=== PATIENT | female | born 1980 | race Two or more races ===

== ENCOUNTER 2021-07-15 07:21 | Observation (INO) | payer MEDICAID ==
[2021-07-15] MEDS ORDERED: NITR-87 PO (09:15)
[2021-07-15] MEDS ORDERED: PREN-96 PO (09:15)
== END 2021-07-15 09:52 | disposition home or self-care (01) ==
LOC: LDRP 08:20
PROVIDERS: ADMIT Obstetrics & Gynecology; ATTEND Obstetrics & Gynecology
DX: O36.1930 Maternal care for other isoimmunization, third trimester, not applicable or unspecified (principal); O23.43 Unspecified infection of urinary tract in pregnancy, third trimester; Z3A.29 29 weeks gestation of pregnancy
CPT/HCPCS: 59025; 76818; 81002; 94760; G0378; G0379

== ENCOUNTER 2021-07-22 08:46 | Observation (INO) | payer MEDICAID ==
[~2021-07-22 08:46] MED LIST: NITR-87 PO; PREN-96 PO
== END 2021-07-22 09:52 | disposition home or self-care (01) ==
LOC: LDRP 08:46
PROVIDERS: ADMIT Obstetrics & Gynecology; ATTEND Obstetrics & Gynecology
DX: O36.1930 Maternal care for other isoimmunization, third trimester, not applicable or unspecified (principal); Z3A.30 30 weeks gestation of pregnancy
CPT/HCPCS: 59025; 76818; 81002; 94760; G0378; G0379

== ENCOUNTER 2021-07-25 10:07 | Observation (INO) | payer MEDICAID | END 2021-07-25 11:10 | disposition home or self-care (01) | LOC: LDRP 10:07 | PROVIDERS: ADMIT Obstetrics & Gynecology; ATTEND Obstetrics & Gynecology | DX: O36.0930 Maternal care for other rhesus isoimmunization, third trimester, not applicable or unspecified (principal); O40.3XX0 Polyhydramnios, third trimester, not applicable or unspecified; Z3A.31 31 weeks gestation of pregnancy | CPT/HCPCS: 59025; 76818; 81002; 94760; G0378; G0379 ==

== ENCOUNTER 2021-07-28 08:14 | Observation (INO) | payer MEDICAID | END 2021-07-28 12:17 | disposition home or self-care (01) | LOC: LDRP 09:30 | PROVIDERS: ADMIT Obstetrics & Gynecology Obstetrics; ATTEND Obstetrics & Gynecology Obstetrics | DX: O36.0930 Maternal care for other rhesus isoimmunization, third trimester, not applicable or unspecified (principal); O40.3XX0 Polyhydramnios, third trimester, not applicable or unspecified; Z3A.31 31 weeks gestation of pregnancy | CPT/HCPCS: 59025; 76818; 81002; G0378 ==

== ENCOUNTER 2021-08-01 07:55 | Observation (INO) | payer MEDICAID ==
[~2021-08-01 07:55] MED LIST changes: -NITR-87 PO
== END 2021-08-01 11:00 | disposition home or self-care (01) ==
LOC: LDRP 09:28
PROVIDERS: ADMIT Obstetrics & Gynecology; ATTEND Obstetrics & Gynecology
DX: O36.0930 Maternal care for other rhesus isoimmunization, third trimester, not applicable or unspecified (principal); Z3A.32 32 weeks gestation of pregnancy
CPT/HCPCS: 59025; 76818; 81002; 94760; G0378; G0379

== ENCOUNTER 2021-08-04 08:50 | Observation (INO) | payer MEDICAID | END 2021-08-04 11:32 | disposition home or self-care (01) | LOC: LDRP 08:50 | PROVIDERS: ADMIT Obstetrics & Gynecology Obstetrics; ATTEND Obstetrics & Gynecology Obstetrics | DX: O36.0930 Maternal care for other rhesus isoimmunization, third trimester, not applicable or unspecified (principal); Z3A.32 32 weeks gestation of pregnancy | CPT/HCPCS: 59025; 76818; 81002; 94760; G0378 ==

== ENCOUNTER 2021-08-08 08:56 | Observation (INO) | payer MEDICAID | END 2021-08-08 10:55 | disposition home or self-care (01) | LOC: LDRP 08:56 | PROVIDERS: ADMIT Obstetrics & Gynecology; ATTEND Obstetrics & Gynecology | DX: O36.1930 Maternal care for other isoimmunization, third trimester, not applicable or unspecified (principal); Z3A.33 33 weeks gestation of pregnancy | CPT/HCPCS: 59025; 76818; 81002; 94760; G0378; G0379 ==

== ENCOUNTER 2021-08-11 08:45 | Observation (INO) | payer MEDICAID | END 2021-08-11 10:10 | disposition home or self-care (01) | LOC: LDRP 08:45 | PROVIDERS: ADMIT Obstetrics & Gynecology Obstetrics; ATTEND Obstetrics & Gynecology Obstetrics | DX: O36.0930 Maternal care for other rhesus isoimmunization, third trimester, not applicable or unspecified (principal); O36.1930 Maternal care for other isoimmunization, third trimester, not applicable or unspecified; Z3A.33 33 weeks gestation of pregnancy | CPT/HCPCS: 59025; 76818; 81002; 82948; G0378; G0379 ==

== ENCOUNTER 2021-08-15 07:41 | Observation (INO) | payer MEDICAID | END 2021-08-15 10:05 | disposition home or self-care (01) | LOC: LDRP 08:49 | PROVIDERS: ADMIT Obstetrics & Gynecology; ATTEND Obstetrics & Gynecology | DX: O36.1930 Maternal care for other isoimmunization, third trimester, not applicable or unspecified (principal); Z3A.34 34 weeks gestation of pregnancy | CPT/HCPCS: 59025; 76818; 81002; 94760; G0378 ==

== ENCOUNTER 2021-08-18 09:21 | Observation (INO) | payer MEDICAID | END 2021-08-18 10:23 | disposition home or self-care (01) | LOC: LDRP 09:21 | PROVIDERS: ADMIT Obstetrics & Gynecology Obstetrics; ATTEND Obstetrics & Gynecology Obstetrics | DX: O36.0191 Maternal care for anti-D [Rh] antibodies, unspecified trimester, fetus 1 (principal); O40.9XX0 Polyhydramnios, unspecified trimester, not applicable or unspecified; Z3A.34 34 weeks gestation of pregnancy | CPT/HCPCS: 59025; 76818; 81002; 94760; G0378; G0379 ==

== ENCOUNTER 2021-08-25 09:00 | Observation (INO) | payer MEDICAID | END 2021-08-25 10:49 | disposition home or self-care (01) | LOC: LDRP 09:00 | PROVIDERS: ADMIT Obstetrics & Gynecology Obstetrics; ATTEND Obstetrics & Gynecology Obstetrics | DX: O40.3XX0 Polyhydramnios, third trimester, not applicable or unspecified (principal); O36.1930 Maternal care for other isoimmunization, third trimester, not applicable or unspecified; O34.219 Maternal care for unspecified type scar from previous cesarean delivery; N85.8 Other specified noninflammatory disorders of uterus; Z3A.35 35 weeks gestation of pregnancy | CPT/HCPCS: 59025; 76818; 81002; 94760; G0378 ==

== ENCOUNTER 2021-08-29 09:53 | Observation (INO) | payer MEDICAID ==
[~2021-08-29] VITALS: Ht 160 cm; Wt 103.9 kg
== END 2021-08-29 11:33 | disposition home or self-care (01) ==
LOC: LDRP 09:53
PROVIDERS: ADMIT Obstetrics & Gynecology; ATTEND Obstetrics & Gynecology
DX: O36.1930 Maternal care for other isoimmunization, third trimester, not applicable or unspecified (principal); O40.3XX0 Polyhydramnios, third trimester, not applicable or unspecified; Z3A.36 36 weeks gestation of pregnancy
CPT/HCPCS: 59025; 76818; 81002; 94760; G0378; G0379

== ENCOUNTER 2021-09-01 08:29 | Observation (INO) | payer MEDICAID | END 2021-09-01 11:17 | disposition home or self-care (01) | LOC: LDRP 09:01 | PROVIDERS: ADMIT Obstetrics & Gynecology Obstetrics; ATTEND Obstetrics & Gynecology Obstetrics | DX: O40.3XX0 Polyhydramnios, third trimester, not applicable or unspecified (principal); O36.1930 Maternal care for other isoimmunization, third trimester, not applicable or unspecified; Z3A.36 36 weeks gestation of pregnancy | CPT/HCPCS: 59025; 81002; G0378; G0379 ==

== ENCOUNTER 2021-09-05 08:45 | Observation (INO) | payer MEDICAID | END 2021-09-05 10:15 | disposition home or self-care (01) | LOC: LDRP 08:45 | PROVIDERS: ADMIT Obstetrics & Gynecology; ATTEND Obstetrics & Gynecology | DX: O36.1930 Maternal care for other isoimmunization, third trimester, not applicable or unspecified (principal); O40.3XX0 Polyhydramnios, third trimester, not applicable or unspecified; Z3A.37 37 weeks gestation of pregnancy | CPT/HCPCS: 59025; 76818; 81002; G0378; G0379 ==

== ENCOUNTER 2021-09-08 07:41 | Observation (INO) | payer MEDICAID | END 2021-09-08 11:29 | disposition home or self-care (01) | LOC: LDRP 09:15 | PROVIDERS: ADMIT Obstetrics & Gynecology; ATTEND Obstetrics & Gynecology | DX: O40.3XX0 Polyhydramnios, third trimester, not applicable or unspecified (principal); O36.1930 Maternal care for other isoimmunization, third trimester, not applicable or unspecified; Z3A.37 37 weeks gestation of pregnancy | CPT/HCPCS: 59025; 76818; 81002; G0378 ==

== ENCOUNTER 2021-09-12 09:12 | Observation (INO) | payer MEDICAID ==
[~2021-09-12] VITALS: Ht 160 cm; Wt 104.3 kg
== END 2021-09-12 10:40 | disposition home or self-care (01) ==
LOC: LDRP 09:12
PROVIDERS: ADMIT Obstetrics & Gynecology; ATTEND Obstetrics & Gynecology
DX: O36.1930 Maternal care for other isoimmunization, third trimester, not applicable or unspecified (principal); O40.3XX0 Polyhydramnios, third trimester, not applicable or unspecified; Z3A.38 38 weeks gestation of pregnancy
CPT/HCPCS: 59025; 76818; 81002; G0378; G0379

== ENCOUNTER 2021-09-16 07:46 | Inpatient (IN) | payer MEDICAID ==
[~2021-09-16] VITALS: Ht 160 cm; Wt 104.3 kg
[2021-09-17] VITALS (9 sets, daily range): BP systolic 104–118; BP diastolic 60–79
[2021-09-17] MEDS ORDERED: SODIUM CITR/CITRIC ACID ORAL SOLN 30 ML PO ONE (04:45)
[2021-09-17] MEDS ORDERED: ceFAZolin 1GM/50ML 50 ML IV ONE (04:45)
[2021-09-17] MEDS: LACTATED RINGER'S 1,000 ML IV SCH ×3 (04:45→20:45)
[2021-09-17] MEDS ORDERED: METOCLOPRAMIDE HCL 5MG/ml INJ 2ml VIAL IV ONE (04:45)
[2021-09-17] MEDS ORDERED: LACTATED RINGER'S 1,000 ML IV ONE (04:45)
[2021-09-17 05:17] LABS: Urine Bacteria MANY /hpf (None Seen); Urine Blood Negative /uL (Negative); Urine Mucus FEW (None Seen); Urine Specific Gravity 1.021 (1.001-1.035); Urine WBC 3 /hpf (0 - 5)
[2021-09-17 05:37] LABS: Amphetamine Screen, Urine POSITIVE (NEGATIVE); Barbiturate Scree,Urine NEGATIVE (NEGATIVE); Benzodiazephine Screen, Urine NEGATIVE (NEGATIVE); Cannabinoid Screen, Urine NEGATIVE (NEGATIVE); Cocaine Screen, Urine NEGATIVE (NEGATIVE); Opiate Scree,Urine NEGATIVE (NEGATIVE); Phencyclidine Screen, Urine NEGATIVE (NEGATIVE)
[2021-09-17] MEDS ORDERED: SODIUM CHLORIDE LOCK 10 ML ONE (06:17)
[2021-09-17] MEDS ORDERED: EPINEPHrine HCL 1 MG/1 ML AMP ONE (06:17)
[2021-09-17] MEDS ORDERED: oxyTOCIN 10 UNIT/ML 10ML VIAL ONE (06:17)
[2021-09-17] MEDS ORDERED: fentaNYL CITRATE 100 MCG/2 ML VL ONE (06:17)
[2021-09-17] MEDS ORDERED: ONDANSETRON HCL 4 MG/2 ML VIAL ONE (06:17)
[2021-09-17] MEDS ORDERED: MIDAZOLAM HCL 2MG/2ML 2ml VIAL (1mg/ml) ONE ×2 (06:17→08:44)
[2021-09-17] MEDS ORDERED: BUPIVACAINE/DEXTROSE MPF 0.75% 2 ML AMP IT ONE (06:17)
[2021-09-17 06:20] LABS: Albumin 2.6 g/dL (3.4-5.0); Calcium 8.4 mg/dL (8.5-10.1); Potassium 3.6 mmol/L (3.5-5.1)
[2021-09-17 06:21] LABS: Basophils # (auto) 0 10 ^3/uL (0-0.2); Basophils % (auto) 0.2 % (0.0-2.0); Eosinophils # (auto) 0.1 10 ^3/uL (0-0.8); Eosinophils % (auto) 1.2 % (0.0-7.0); Hemoglobin 12.8 g/dL (12.2-16.2); Mean Corpuscular Hemoglobin 32.7 pg (28.0-32.0); Mean Corpuscular Hgb Conc. 33.8 g/dL (32.0-36.0); Mean Corpuscular Volume 96.8 fL (80.0-100.0); Monocytes # (auto) 0.5 10 ^3/uL (0-1.3); Monocytes % (auto) 6.6 % (0.0-12.0); Neutrophils # (auto) 6.2 10 ^3/uL (1.6-8.6); Red Blood Cells 3.92 10^6/uL (4.0-5.20); Red Cell Distribution Width 14.6 % (11.8-14.3); White Blood Cell 7.8 10^3/uL (4.4-10.8)
[2021-09-17] MEDS ORDERED: MORPHINE SULF PF 2 MG/2 ML SYRG ONE (06:22)
[2021-09-17 06:24] LABS: Bilirubin, Total 0.2 mg/dL (0.2-1.0); Total Protein 6.3 g/dL (6.4-8.2)
[2021-09-17] MEDS ORDERED: TETRACAINE 1% INJ 2 ML VIAL IJ ONE (06:27)
[2021-09-17 06:35] LABS: INR 0.96 (0.9-1.15)
[2021-09-17] MEDS ORDERED: GUM (CHEWING) 1 GUM CHEW CHEW ONE (07:30)
[2021-09-17] MEDS ORDERED: LACT. RINGERS/OXYTOCIN 20UNITS 1,000 ML IV ONE (07:30)
[2021-09-17] MEDS ORDERED: ceFAZolin 1GM/50ML 50 ML IV SCH (07:30)
[2021-09-17] MEDS ORDERED: ONDANSETRON HCL 4 MG/2 ML VIAL IV PRN (07:30)
[2021-09-17] MEDS ORDERED: diphenhdrAMINE HCL 50 MG/1 ML VL ONE (08:38)
[2021-09-17] MEDS ORDERED: diphenhdrAMINE HCL 50 MG/1 ML VL IV PRN (09:00)
[2021-09-17] MEDS ORDERED: KETOROLAC TROMETH 30 MG/ML 1ML VIAL IV ONE (09:00)
[2021-09-17] MEDS ORDERED: MORPHINE SULFATE 4 MG/ML SYR/VIAL IV PRN (09:00)
[2021-09-17] MEDS ORDERED: METOCLOPRAMIDE HCL 5MG/ml INJ 2ml VIAL IV PRN (09:00)
[2021-09-17] MEDS ORDERED: NALOXONE HCL 0.4 MG/ML VIAL IV PRN (09:00)
[2021-09-17] MEDS ORDERED: HYDROmorphone HCL 2 MG/ML VL IV PRN (09:00)
[2021-09-17] MEDS ORDERED: METHYLERGONOVINE MALEATE 0.2 MG/ML AMP IM PRN (14:00)
[2021-09-17] MEDS ORDERED: miSOPROStol 100 mcg TAB SL PRN (14:00)
[2021-09-17] MEDS ORDERED: miSOPROStol 100 mcg TAB PR PRN (14:00)
[2021-09-17] MEDS ORDERED: LACT. RINGERS/OXYTOCIN 20UNITS 500 ML IV ONE (14:45)
[2021-09-17] MEDS: ceFAZolin 1GM/50ML 50 ML IV SCH ×2 (14:47→22:53)
[2021-09-17] MEDS: ACETAMINOPHEN IV 1000 MG/100ML (10MG/ML) IV PRN (16:29)
[2021-09-17 19:40] LABS: Alcohol, Urine < 3.0 mg/dL (0-10); Amphetamine Screen, Urine NEGATIVE (NEGATIVE); Barbiturate Scree,Urine NEGATIVE (NEGATIVE); Benzodiazephine Screen, Urine POSITIVE (NEGATIVE); Cannabinoid Screen, Urine NEGATIVE (NEGATIVE); Cocaine Screen, Urine NEGATIVE (NEGATIVE); Opiate Scree,Urine NEGATIVE (NEGATIVE); Phencyclidine Screen, Urine NEGATIVE (NEGATIVE)
[2021-09-17 22:04] LABS: Basophils # (auto) 0 10 ^3/uL (0-0.2); Basophils % (auto) 0.1 % (0.0-2.0); Eosinophils # (auto) 0 10 ^3/uL (0-0.8); Eosinophils % (auto) 0.5 % (0.0-7.0); Hematocrit 38.8 % (36.0-46.0); Hemoglobin 13.1 g/dL (12.2-16.2); Lymphocytes % (auto) 9.3 % (10.0-50.0); Mean Corpuscular Hemoglobin 32.8 pg (28.0-32.0); Mean Corpuscular Hgb Conc. 33.8 g/dL (32.0-36.0); Mean Corpuscular Volume 96.9 fL (80.0-100.0); Monocytes # (auto) 0.7 10 ^3/uL (0-1.3); Monocytes % (auto) 6.8 % (0.0-12.0); Neutrophils # (auto) 8.5 10 ^3/uL (1.6-8.6); Neutrophils % (auto) 83.3 % (37.0-80.0); Nucleated Red Blood Cells % 0.1 %; Red Cell Distribution Width 14.2 % (11.8-14.3); White Blood Cell 10.2 10^3/uL (4.4-10.8)
[2021-09-18] VITALS (13 sets, daily range): BP systolic 106–130; BP diastolic 50–82
[2021-09-18] MEDS: ACETAMINOPHEN IV 1000 MG/100ML (10MG/ML) IV PRN ×2 (00:40→11:23)
[2021-09-18] MEDS ORDERED: TETANUS-DIPTH-ACEL PERTUSSIS 0.5ML SYR Tdap IM ONE (01:15)
[2021-09-18] MEDS: LACTATED RINGER'S 1,000 ML IV SCH (02:26)
[2021-09-18 06:06] LABS: RPR Non Reactive (Non Reactive)
[2021-09-18] MEDS ORDERED: BISACODYL 10 MG RECT SUPP PR PRN (07:00)
[2021-09-18] MEDS: ceFAZolin 1GM/50ML 50 ML IV SCH (07:38)
[2021-09-18] MEDS: HYDROcodone-ACET 5/325MG TAB PO PRN ×3 (07:49→23:22)
[2021-09-18] MEDS ORDERED: LACT. RINGER'S W OXYTOCIN 20UNITS/1000 ML IV SCH (10:00)
[2021-09-18 10:09] LABS: Basophils # (auto) 0 10 ^3/uL (0-0.2); Basophils % (auto) 0.2 % (0.0-2.0); Eosinophils # (auto) 0 10 ^3/uL (0-0.8); Eosinophils % (auto) 0.2 % (0.0-7.0); Hematocrit 37.6 % (36.0-46.0); Hemoglobin 12.8 g/dL (12.2-16.2); Lymphocytes # (auto) 0.6 10 ^3/uL (0.4-5.4); Lymphocytes % (auto) 6.1 % (10.0-50.0); Mean Corpuscular Hemoglobin 32.9 pg (28.0-32.0); Mean Corpuscular Hgb Conc. 34.1 g/dL (32.0-36.0); Mean Corpuscular Volume 96.4 fL (80.0-100.0); Monocytes # (auto) 0.6 10 ^3/uL (0-1.3); Monocytes % (auto) 5.7 % (0.0-12.0); Neutrophils # (auto) 8.8 10 ^3/uL (1.6-8.6); Neutrophils % (auto) 87.8 % (37.0-80.0); Red Cell Distribution Width 14.2 % (11.8-14.3)
[2021-09-18] MEDS: DOCUSATE SOD 100 MG CAP PO SCH ×2 (10:12→23:20)
[2021-09-18] MEDS: DOCUSATE CALCIUM 240 MG CAP PO SCH (10:12)
[2021-09-18] MEDS: SIMETHICONE 80 MG CHEWABLE TABLET PO SCH ×3 (12:11→23:20)
[2021-09-18] MEDS: IBUPROFEN 800 MG TAB PO PRN (15:56)
[2021-09-19 03:00] VITALS: BP 119/71
[2021-09-19] MEDS: IBUPROFEN 800 MG TAB PO PRN ×2 (04:35→14:46)
[2021-09-19] MEDS: SIMETHICONE 80 MG CHEWABLE TABLET PO SCH ×4 (05:57→22:19)
[2021-09-19 07:00] VITALS: BP 115/60
[2021-09-19] MEDS ORDERED: DOCU-94 PO (07:38)
[2021-09-19] MEDS ORDERED: HYDR-4902 PO (07:38)
[2021-09-19] MEDS ORDERED: IBUP800T27 PO (07:38)
[2021-09-19] MEDS: DOCUSATE CALCIUM 240 MG CAP PO SCH (10:44)
[2021-09-19] MEDS: DOCUSATE SOD 100 MG CAP PO SCH ×2 (10:44→22:19)
[2021-09-19] MEDS: HYDROcodone-ACET 5/325MG TAB PO PRN ×2 (10:55→22:20)
[2021-09-19 11:00] VITALS: BP 117/70
[2021-09-19 15:04] VITALS: BP 110/58
[2021-09-19 19:30] VITALS: BP 132/80
[2021-09-19 22:35] VITALS: BP 108/62
[2021-09-20] MEDS: IBUPROFEN 800 MG TAB PO PRN (02:44)
[2021-09-20 03:16] VITALS: BP 130/62
[2021-09-20] MEDS: SIMETHICONE 80 MG CHEWABLE TABLET PO SCH (06:00)
[2021-09-20 07:00] VITALS: BP 123/68
[2021-09-20 11:30] VITALS: BP 139/79
== END 2021-09-20 12:57 | disposition home or self-care (01) | DRG 539 ==
LOC: LDRP 09-17 03:58 → OBSVTOIN 09-17 03:58 → LDRP 09-17 12:54
PROVIDERS: ADMIT Obstetrics & Gynecology; ATTEND Obstetrics & Gynecology
PROC: 0UB70ZZ Excision of Bilateral Fallopian Tubes, Open Approach (ICD-10-PCS; 2021-09-17)
PROC: 3E0DXGC Introduction of Other Therapeutic Substance into Mouth and Pharynx, External Approach (ICD-10-PCS; 2021-09-17)
PROC: 10D00Z1 Extraction of Products of Conception, Low, Open Approach (ICD-10-PCS; principal; 2021-09-17 07:40)
DX: O34.211 Maternal care for low transverse scar from previous cesarean delivery (principal); Z20.822 Contact with and (suspected) exposure to COVID-19; Z30.2 Encounter for sterilization; Z37.0 Single live birth; Z3A.39 39 weeks gestation of pregnancy
CPT/HCPCS: 36415; 59025; 80053; 80307; 81001; 81002; 85025; 85610; 85730; 86592; 86850; 86870; 86900; 86901; 87426; 90715; 94760; 94762; 96360; 96361; 96366; 96372; G0378; J0131; J0171; J0690; J2250; J2405; J2590

== ENCOUNTER 2024-11-05 11:59 | Inpatient (IN) | payer MEDICAID ==
[~2024-11-05] VITALS: Ht 160 cm; Wt 84.3 kg
[~2024-11-05 11:59] MED LIST changes: +DOCU-94 PO; +HYDR-4902 PO; +IBUP-1456 PO
[2024-11-05] MEDS ORDERED: NITROGLYCERIN 2% OINT 1GM PKG TD ONE (12:01)
[2024-11-05] MEDS ORDERED: LORazepam 2MG/ML-1ML VIAL ONE (12:01)
--- NOTE | 2024-11-05 12:28 | ED.PDOC ---
HPI Comments 44y F who presents to the ED for chief complaint of chest pain. Pt states she has been having chest pain for the past 3 days. Pt states the pain is by the L side of her chest, intermittent, stabbing in nature, with no associated exacerbating or relieving factors. Pt states the symptoms had gone away and states came back today where she experienced L sided chest pain described as tightness and has started to have bilateral lower extremity pain described as "tingling." Pt states she also started to have this new associated generalized malaise and weakness and came to the ED for further evaluation. Pt otherwise denies shortness of breath, diaphoresis, palpitations, fever, cough,chills, headache or dizziness. Pt in the ED has noted blood pressure of 146/110 with otherwise noted stable vitals of temp of 98.2F and 100% 02 sat on room air with all other vitals in normal range. Pt denies any past medical history and denies use any medications on daily basis. Pt otherwise denies any other symptoms at this time. Time Seen by MD: 12:23 Primary Care Provider: JOSUÉ Egan Notes: Medications, Allergies Allergies: Coded Allergies: NO KNOWN ALLERGIES (Unverified , 09/15/21) Home Meds Active Scripts Ibuprofen (Ibuprofen) 800 Mg Tab, 800 MG PO TID PRN for 15 Days, #40 TAB Prov:LEON GUIDRY 09/19/21 Hydrocodone-Acetaminophen (Hydrocodone Bitartrate/AC 5-325 mg) 1 Tab Tab, 1 TAB PO Q6HPRN PRN for 5 Days, #20 TAB Prov:LEON GUIDRY 09/19/21 Docusate Sodium (Colace) 100 Mg Cap, 1 CAP PO BID, #60 CAP 2 Refills Prov:LEON GUIDRY 09/19/21 Reported Medications Vit W/ Ferrous Fumara ( One Daily) Daily Tab, 1 TAB PO DAILY, #90 TAB 3 Refills 07/15/21 Information Source: Patient Mode of Arrival: Ambulatory Brought in by: self Past Medical History PAST MEDICAL HISTORY: Denies Surgical History: Denies all surgeries IRON WORKER History: No Pertinent IRON WORKER History Family History Family History: Unknown Social History Smoker: Non-Smoker Alcohol: Denies ETOH Use Drugs: Denies Drug Use Lives In: Home Constitutional: denies: chills, diaphoresis, fatigue, fever, malaise, sweats, weakness, others EENTM: denies: blurred vision, double vision, ear bleeding, ear discharge, ear drainage, ear pain, ear ringing, eye pain, eye redness, hearing loss, mouth pain, mouth swelling, nasal discharge, nose bleeding, nose congestion, nose pain, photophobia, tearing, throat pain, throat swelling, voice changes, others Respiratory: denies: cough, hemoptysis, orthopnea, SOB at rest, shortness of breath, SOB with excertion, stridor, wheezing, others Cardiovascular: reports: chest pain; denies: dizzy spells, diaphoresis, Dyspnea on exertion, edema, irregular heart beat, left arm pain, lightheadedness, pal pitations, PND, syncope, others Gastrointestinal: denies: abdomen distended, abdominal pain, blood streaked bowels, constipated, diarrhea, dysphagia, difficulty swallowing, hematemesis, melena, nausea, poor appetite, poor fluid intake, rectal bleeding, rectal pain, vomiting, others Genitourinary: denies: abnormal vagina bleeding, burning, dyspareunia, dysuria, flank pain, frequency, hematuria, incontinence, pain, , vagina discharge, urgency, others Neurological: denies: dizziness, fainting, headache, left sided numbness, left sided weakness, numbness, paresthesia, pre-existing deficit, right sided numbness, right sided weakness, seizure, speech problems, tingling, tremors, weakness, others Musculoskeletal: reports: others (b/l lower extremity tingling); denies: back pain, gout, joint pain, joint swelling, muscle pain, muscle stiffness, neck pain Integumetry: denies: bruises, change in color, change in hair/nails, dryness, laceration, lesions, lumps, rash, wounds, others Allergic/Immunocompromised: denies: Difficulty Healing, Frequent Infections, Hives, Itching, others Hematologic/Lymphatic: denies: anemia, blood clots, easy bleeding, easy bruising, swollen glands, others Endocrine: denies: excessive hunger, excessive sweating, excessive thirst, excessive urination, flushing, intolerance to cold, intolerance to heat, unexplained weight gain, unexplained weight loss, others Psychiatric: denies: anxiety, bipolar disorder, depression, hopeless, panic disorder, schizophrenia, sleepless, suicidal, others All Other Systems: Reviewed and Negative Physical Exam General Appearance: Mild Distress, Obese HEENT: PERRL/EOMI Neck: Full Range of Motion, Normal Inspection Respiratory: Lungs Clear, No Accessory Muscle Use, No Respiratory Distress, Normal Breath Sounds Cardiovascular: No Edema, No JVD, Regular Rate/Rhythm Breast Exam: Deferred Gastrointestinal: Non Tender, Soft Genitalia: Deferred Pelvic: Deferred Rectal: Deferred Extremities: Normal inspection, Normal range of motion, Non-tender, No pedal edema Neurologic: Alert (Oriented x4), picker tender II-XII nml as Tested, No Motor Deficits, No Sensory Deficits, Other (Anxious. Ambulatory without difficulty. No gross focal deficit.) Cerebellar Function: NOT DONE Reflexes: NOT DONE Skin: Dry, Normal Color, Warm Lymphatic: NOT DONE EKG EKG : Comments Sinus rhythm, rate 76, normal intervals, normal axis, normal QRS, no ST/T changes. Was a procedure done? Was a procedure done?: No CP Differential Dx Differential Diagnosis: Angina, Anxiety / Panic Attack, Electrolyte Disorder, PR Other Differential Diagnosis anemia, generalized weakness, UTI, Differential Diagnosis: HTN Essential, HTN Accelerated Differential Diagnosis: Angina, Aortic dissection, Chest Wall Pain, Esophageal reflux/spasm, Gastritis, Pericarditis, Pneumonia Comment CVA, TIA, among others X-Ray, Labs, Meds, VS Vital Signs Date Time Temp Pulse Resp B/P (MAP) Pulse Ox O2 Delivery O2 Flow Rate FiO2 11/05/24 14:11 117/77 11/05/24 14:11 81 15 117/77 (90) 11/05/24 13:02 75 16 99 Room Air* 0 21 11/05/24 13:01 119/84 11/05/24 13:01 97.9 75 17 119/84 (96) 99 97.9 11/05/24 12:18 98.1 74 16 146/110 (122) 100 11/05/24 12:15 76 Lab Test 11/05/24 14:03 11/05/24 13:00 11/05/24 12:22 Range/Units Troponin I High Sensitivity < 3 L < 3 L </=34 ng/L White Blood Count 4.4 4.4-10.8 10^3/uL Red Blood Count 4.37 4.0-5.20 10^6/uL Hemoglobin 8.0 L 12.2-16.2 g/dL Hematocrit 27.4 L 36.0-46.0 % Mean Corpuscular Volume 62.6 L 80.0-100.0 fL Mean Corpuscular Hemoglobin 18.2 L 28.0-32.0 pg Mean Corpuscular Hemoglobin Concent 29.0 L 32.0-36.0 g/dL Red Cell Distribution Width 20.2 H 11.8-14.3 % Platelet Count 350 140-450 10^3/uL Mean Platelet Volume 8.5 6.9-10.8 fL Neutrophils (%) (Auto) 61.8 37.0-80.0 % Lymphocytes (%) (Auto) 27.5 10.0-50.0 % Monocytes (%) (Auto) 7.2 0.0-12.0 % Eosinophils (%) (Auto) 2.7 0.0-7.0 % Basophils (%) (Auto) 0.8 0.0-2.0 % Neutrophils # (Auto) 2.7 1.6-8.6 10 ^3/uL Lymphocytes # (Auto) 1.2 0.4-5.4 10 ^3/uL Monocytes # (Auto) 0.3 0-1.3 10 ^3/uL Eosinophils # (Auto) 0.1 0-0.8 10 ^3/uL Basophils # (Auto) 0 0-0.2 10 ^3/uL Nucleated Red Blood Cells 0.1 % Sodium Level 140 136-145 mmol/L Potassium Level 4.0 3.5-5.1 mmol/L Chloride Level 109 H 98-107 mmol/L Carbon Dioxide Level 25 20-31 mmol/L Anion Gap 6 5-15 Blood Urea Nitrogen 15 9-23 mg/dL Creatinine 0.57 0.550-1.02 mg/dL Glomerular Filtration Rate Calc 115 >90 mL/min BUN/Creatinine Ratio 26.3 H 10.0-20.0 Serum Glucose 89 74-106 mg/dL Calcium Level 9.4 8.7-10.4 mg/dL B-Type Natriuretic Peptide 31.84 0-100 pg/mL Beta HCG, Quantitative < 1.5 L 1.5-4.2 mIU/mL POC Glucose 88 70-106 mg/dl Current Medications Medications (Trade) Dose Ordered Sig/Bon Route Start Time Stop Time Status Last Admin Lorazepam (Ativan Inj) 1 mg ONCE ONCE IV 11/05/24 12:45 11/05/24 12:49 DC 11/05/24 13:01 Nitroglycerin (Nitro-Bid) 1 pkg ONCE ONCE TD 11/05/24 12:45 11/05/24 12:49 DC 11/05/24 13:01 Acetaminophen (Tylenol Tablet Or Capsule) 1,000 mg ONCE ONCE PO 11/05/24 12:45 11/05/24 12:49 DC 11/05/24 13:00 PROCEDURE(s): HWOCT - HEAD WITHOUT CONTRAST REASON: L side numb ORDER NUMBER(s): [id number], ACCESSION NUMBER(s): [id number] CT HEAD WITHOUT CONTRAST INDICATION: L side numb EXAM DATE: 11/05/2024 02:09 PM COMPARISON: None RADIATION DOSE: CTDIvol: 53.21 mGy, DLP: 942.26 mGy*cm PROCEDURE: CT scans of the head were obtained from the vertex to the skull base. Sagittal and coronal reconstructions were provided. All CT scans at this medical facility are performed using dose modulation techniques as appropriate to a performed exam including the following: Automated exposure control was utilized; adjustment of the MA and/or KV according to patient size; and use of iterative reconstruction technique. FINDINGS: There is sulcal and ventricular prominence. The brainshows normal morphology and banks-white matter differentiation, without intracranial hemorrhage, extra-axial fluid collection, mass effect or acute large vessel infarct. The ventricles are normal in size. The basal cisterns are patent. The skull and visible facial bones are intact. The paranasal sinuses, mastoid air cells and middle ear cavities are well-aerated. The soft tissues of the scalp are unremarkable. IMPRESSION: No acute intracranial abnormality. EDURE(s): CXRP - CHEST PORTABLE REASON: cp ORDER NUMBER(s): [id number], ACCESSION NUMBER(s): [id number] INDICATION: cp TECHNIQUE: Frontal view of the chest. COMPARISON: None FINDINGS: . The heart and mediastinal contours are grossly unremarkable. There is no evidence of pleural disease. The lungs are clear. The bony structures of the chest are intact without fracture. IMPRESSION: 1. No evidence of acute disease. X-Ray, Labs, Meds, VS Comment 44-year-old female with no significant past medical history presenting with chest pain, facial numbness and lower extremity numbness Vitals remarkable for BP 146/110 Exam remarkable for anxiety. No focal neurologic deficit Rhythm strip independently interpreted by me: Sinus rhythm, rate 76, no ectopy. Head CT IMPRESSION: No acute intracranial abnormality. Chest x-ray IMPRESSION: 1. No evidence of acute disease. CBC remarkable for hemoglobin 8, hematocrit 27.4, metabolic panel unremarkable, BNP and 2 serial troponins negative, hCG negative Patient treated with the following in the ED: Nitro-Bid 1/2 in to chest wall, Ativan 1 mg IV, Tylenol 1 g p.o. On re-evaluation, patient is chest pain-free, blood pressure is 117/77, and patient states she feels better. Neuro exam is unchanged. Plan is to admit the patient for Cardiology evaluation and ongoing blood pressure management. Time of 1ST Reevaluation: 13:00 Reevaluation 1ST: Unchanged Time of 2ND Reevaluation: 15:18 Reevaluation 2ND: Improved Patient Education/Counseling: Diagnosis, Treatment Family Education/Counseling: No Family Present Additional Information -Reviewed patient's previous visit(s): - The following tests were ordered, and results were reviewed by me: trop x 2, cbc, bnp. chest x-ray, ua, bmp, ekg x1, ct head w/o contrast, beta hcg - I reviewed and agreed with the following test results read by other provider: radiologist - I discussed treatments and results with medical personnel and: patient Comprehensive systems review obtained and negative except for what is stated in the HPI. Departure 1 Departure Time of Disposition: 15:17 Impression: Primary Impression: Hypertensive urgency Additional Impressions: Acute chest pain Paresthesias Disposition: ADMITTED INPATIENT Admit to: Tele Condition: Guarded Critical Care Note Critical Care Time?: No Stability Stability form required: No Heart Score Heart Score: Heart Score Response (Comments) Value History Moderate Suspicious 1 EKG Normal 0 Age <45 0 Risk Factors No known risk factors 0 Troponin Normal limit 0 Total 1 I personally scribed for JOSE GUADALUPE BARCLAY MD ([email or web address]) on 11/05/24 at 12 :28. Electronically submitted by Nguyen Robison ([facility] I personally scribed for JOSE GUADALUPE BARCLAY MD ([facility]) on 11/05/24 at 17:00. Electronically submitted by Nguyen Robison ([facility]). JOSE GUADALUPE BARCLAY MD Nov 05, 2024 12:28
--- NOTE | 2024-11-05 12:50 | ECG ---
[facility] Test Date: 2024-11-05 Test Time: 12:15:47 Pat Name: MAYA PEREZ Department: ER Room: Gender: F Project Management Director: MAC : [id number] Requested By: JOSE GUADALUPE BRAY Order Number: [id number] Reading MD: Measurements Intervals [place] Rate: 76 P: -7 [place]: 157 QRS: 79 QRSD: 83 T: 32 QT: 375 QTc: 422 Interpretive Statements Sinus rhythm Please click the below link to view image of tracing.
[2024-11-05] MEDS: ACETAMINOPHEN 500 MG TAB or CAP PO ONE (13:00)
[2024-11-05] MEDS: LORazepam 2MG/ML-1ML VIAL IV ONE (13:01)
[2024-11-05] MEDS: NITROGLYCERIN 2% OINT 1GM PKG TD ONE (13:01)
[2024-11-05 13:02] VITALS: PULSE 75; RESP 16; O2SAT 99
[2024-11-05 13:14] LABS: Basophils # (auto) 0 10 ^3/uL (0-0.2); Eosinophils # (auto) 0.1 10 ^3/uL (0-0.8); Lymphocytes # (auto) 1.2 10 ^3/uL (0.4-5.4); Monocytes # (auto) 0.3 10 ^3/uL (0-1.3); White Blood Cell 4.4 10^3/uL (4.4-10.8)
[2024-11-05 13:15] LABS: Basophils % (auto) 0.8 % (0.0-2.0); Eosinophils % (auto) 2.7 % (0.0-7.0); Hematocrit 27.4 % (36.0-46.0); Lymphocytes % (auto) 27.5 % (10.0-50.0); Mean Corpuscular Hemoglobin 18.2 pg (28.0-32.0); Mean Corpuscular Volume 62.6 fL (80.0-100.0); Monocytes % (auto) 7.2 % (0.0-12.0); Neutrophils # (auto) 2.7 10 ^3/uL (1.6-8.6); Neutrophils % (auto) 61.8 % (37.0-80.0); Nucleated Red Blood Cells % 0.1 %; Platelet Count (auto) 350 10^3/uL (140-450); Red Blood Cells 4.37 10^6/uL (4.0-5.20); Red Cell Distribution Width 20.2 % (11.8-14.3)
[2024-11-05 13:22] LABS: Sodium 140 mmol/L (136-145)
[2024-11-05 13:23] LABS: Anion Gap 6 (5-15); Carbon Dioxide 25 mmol/L (20-31)
[2024-11-05 13:24] LABS: Calcium 9.4 mg/dL (8.7-10.4)
[2024-11-05 13:27] LABS: Chloride 109 mmol/L (98-107)
[2024-11-05 13:28] LABS: BUN/Creatinine Ratio 26.3 (10.0-20.0); Blood Urea Nitrogen 15 mg/dL (9-23); Glucose 89 mg/dL (74-106)
--- NOTE | 2024-11-05 14:33 | DVH ---
INDICATION: cp TECHNIQUE: Frontal view of the chest. COMPARISON: None FINDINGS: . The heart and mediastinal contours are grossly unremarkable. There is no evidence of pleural disea se. The lungs are clear. The bony structures of the chest are intact without fracture. IMPRESSION: 1. No evidence of acute disease.
--- NOTE | 2024-11-05 14:35 | DVH ---
CT HEAD WITHOUT CONTRAST INDICATION: L side numb EXAM DATE: 11/05/2024 02:09 PM COMPARISON: None RADIATION DOSE: CTDIvol: 53.21 mGy, DLP: 942.26 mGy*cm PROCEDURE: CT scans of the head were obtained from the vertex to the skull base. Sagittal and coronal reconstructions were provided. All CT scans at this medical facility are performed using dose modulation techniques as appropriate t o a performed exam including the following: Automated exposure control was utilized; adjustment of th e MA and/or KV according to patient size; and use of iterative reconstruction technique. FINDINGS: There is sulcal and ventricular prominence. The brainshows normal morphology and banks-whi te matter differentiation, without intracranial hemorrhage, extra-axial fluid collection, mass effect or acute large vessel infarct. The ventricles are normal in size. The basal cisterns are patent. The skull and visible facial bones are intact. The paranasal sinuses, mastoid air cells and middle ear c avities are well-aerated. The soft tissues of the scalp are unremarkable. IMPRESSION: No acute intracranial abnormality.
[2024-11-05 17:27] LABS: Triglycerides 117 mg/dL (< 150)
[2024-11-05 17:29] LABS: Cholesterol 190 mg/dL (< 200)
[2024-11-05 17:34] LABS: HDL Cholesterol 61 mg/dL (40-59); LDL Cholesterol 113 mg/dL (< 100)
[2024-11-05] MEDS ORDERED: NITROGLYCERIN 0.4 MG SL TAB SL PRN ×2 (17:45)
[2024-11-05] MEDS ORDERED: MORPHINE SULFATE 4 MG/ML SYR/VIAL IV PRN (17:45)
--- NOTE | 2024-11-05 17:48 | DVHHP2 ---
History of Present Illness Reason for Visit: Chest pain History of Present Illness Rocio Burciaga is a 44-year-old female with past medical history of and bilateral tubal ligation who presents to the ED with chest pain that radiates to the left arm causing weakness, tingling, and numbness x3 days with associated shortness of breath. Patient states that she was eating dinner at the time when the pain came about. She denies any recent illnesses, recent sick contacts, recent trauma or injury, abdominal pain, nausea, vomiting, diarrhea, fevers, chills, lightheadedness, dizziness, and wheezing. Past Surgical History: , Tubal Ligation Family History: DM, Other (Mom with diabetes) Smoke: No ALCOHOL: none Drugs: None Lives: with Family Domestic Violence: Neg Review of Systems Respiratory: Shortness of breath Cardiovascular: Chest Pain Musculoskeletal: arm pain Allergies: Coded Allergies: NO KNOWN ALLERGIES (Unverified , 09/15/21) Exam Vital Signs Vital Signs Date Time Temp Pulse Resp B/P (MAP) Pulse Ox O2 Delivery O2 Flow Rate FiO2 11/05/24 14:11 117/77 11/05/24 14:11 81 15 11/05/24 13:02 99 Room Air* 0 21 11/05/24 13:01 97.9 97.9 General Appearance: Alert, Oriented X3, Cooperative, No acute distress HEENT: Atraumatic, PERRLA, EOMI, Mucous membr. moist/pink Respiratory: Normal air movement Cardiovascular: Regular rate, Normal S1, Normal S2 Abdominal: Normal bowel sounds, Soft, No tenderness, No hepatospenomegaly, No masses Extremities: No clubbing, No cyanosis, No edema, Normal pulses, No tenderness/swelling Skin: No rashes, No breakdown, No significant lesion Neuro: Normal speech, Strength at 5/5 X4 ext, Normal tone, Sensation intact Psych/Mental Status: Mental status NL, Mood NL Labs/Xrays Labs Test 11/05/24 17:25 11/05/24 17:00 11/05/24 14:03 11/05/24 13:00 Range/Units Troponin I High Sensitivity < 3 L </=34 ng/L Triglycerides Level 117 < 150 mg/dL Cholesterol Level 190 < 200 mg/dL LDL Cholesterol 113 H < 100 mg/dL HDL Cholesterol 61 H 40-59 mg/dL White Blood Count 4.4 4.4-10.8 10^3/uL Red Blood Count 4.37 4.0-5.20 10^6/uL Hemoglobin 8.0 L 12.2-16.2 g/dL Hematocrit 27.4 L 36.0-46.0 % Mean Corpuscular Volume 62.6 L 80.0-100.0 fL Mean Corpuscular Hemoglobin 18.2 L 28.0-32.0 pg Mean Corpuscular Hemoglobin Concent 29.0 L 32.0-36.0 g/dL Red Cell Distribution Width 20.2 H 11.8-14.3 % Platelet Count 350 140-450 10^3/uL Mean Platelet Volume 8.5 6.9-10.8 fL Neutrophils (%) (Auto) 61.8 37.0-80.0 % Lymphocytes (%) (Auto) 27.5 10.0-50.0 % Monocytes (%) (Auto) 7.2 0.0-12.0 % Eosinophils (%) (Auto) 2.7 0.0-7.0 % Basophils (%) (Auto) 0.8 0.0-2.0 % Neutrophils # (Auto) 2.7 1.6-8.6 10 ^3/uL Lymphocytes # (Auto) 1.2 0.4-5.4 10 ^3/uL Monocytes # (Auto) 0.3 0-1.3 10 ^3/uL Eosinophils # (Auto) 0.1 0-0.8 10 ^3/uL Basophils # (Auto) 0 0-0.2 10 ^3/uL Nucleated Red Blood Cells 0.1 % Sodium Level 140 136-145 mmol/L Potassium Level 4.0 3.5-5.1 mmol/L Chloride Level 109 H 98-107 mmol/L Carbon Dioxide Level 25 20-31 mmol/L Anion Gap 6 5-15 Blood Urea Nitrogen 15 9-23 mg/dL Creatinine 0.57 0.550-1.02 mg/dL Glomerular Filtration Rate Calc 115 >90 mL/min BUN/Creatinine Ratio 26.3 H 10.0-20.0 Serum Glucose 89 74-106 mg/dL Hemoglobin A1c 5.2 <5.7 % A1C Calcium Level 9.4 8.7-10.4 mg/dL B-Type Natriuretic Peptide 31.84 0-100 pg/mL Beta HCG, Quantitative < 1.5 L 1.5-4.2 mIU/mL Test 11/05/24 12:22 Range/Units POC Glucose 88 70-106 mg/dl CT HEAD WITHOUT CONTRAST INDICATION: L side numb EXAM DATE: 11/05/2024 02:09 PM COMPARISON: None RADIATION DOSE: CTDIvol: 53.21 mGy, DLP: 942.26 mGy*cm PROCEDURE: CT scans of the head were obtained from the vertex to the skull base. Sagittal and coronal reconstructions were provided. All CT scans at this medical facility are performed using dose modulation techniques as appropriate to a performed exam including the following: Automated exposure control was utilized; adjustment of the MA and/or KV according to patient size; and use of iterative reconstruction technique. FINDINGS: There is sulcal and ventricular prominence. The brainshows normal morphology and banks-white matter differentiation, without intracranial hemorrhage, extra-axial fluid collection, mass effect or acute large vessel inf arct. The ventricles are normal in size. The basal cisterns are patent. The skull and visible facial bones are intact. The paranasal sinuses, mastoid air cells and middle ear cavities are well-aerated. The soft tissues of the scalp are unremarkable. IMPRESSION: No acute intracranial abnormality. INDICATION: cp TECHNIQUE: Frontal view of the chest. COMPARISON: None FINDINGS: . The heart and mediastinal contours are grossly unremarkable. There is no evidence of pleural disease. The lungs are clear. The bony structures of the chest are intact without fracture. IMPRESSION: 1. No evidence of acute disease. Assessment/Plan Assessment/Plan Assessment Chest pain Anemia History of History of bilateral tubal ligation Plan Admit to tele Antiemetics Nitro given ED Ativan given ED HCG Troponin negative x2 CT head noted EKG UA Chest x-ray noted BNP Echo ordered TSH Lipid panel UDS A1c ACS workup ACS protocol Pain management No home medications to reconcile DVT prophylaxis not indicated patient ambulating Discussed plan of care with patient and nurse Diet Type and screen Plan discussed with: Patient My Orders Orders - ROBERTO CARLOS CROSS Procedure Category Date Status Time Rapid Influenza A&B LAB 11/05/24 In Process 16:58 Covid19 Antigen Ellie LAB 11/05/24 In Process Echo 2d Mode Cardiac US 11/05/24 Logged DOP 16:58 Thyroid Stimulating LAB 11/05/24 In Process Hormone 16:58 Drug Screen LAB 3/9/25 Logged 16:58 Admit ADMIT 11/05/24 Transmitted 17:41 Code Status CODE 11/05/24 Transmitted 17:41 Vital Signs SHI 11/05/24 Transmitted 17:41 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 SHI 11/05/24 Transmitted 17:41 Cardiac DIET 11/05/24 Transmitted Diet-2gna,Lofat,Lochol Dinner Aspirin Tablet PHA 11/06/24 Transmitted 10:00 Lipitor 40mg Hs PHA 11/05/24 Transmitted Hi-Intensity 22:00 Morphine Sulfate PHA 11/05/24 Transmitted Injection 17:45 Acetaminophen Tablet PHA 11/05/24 Transmitted (Tylenol Tablet) 17:45 Complete Blood Count LAB 11/06/24 Verified 04:00 Basic Metabolic Panel LAB 11/06/24 Verified 04:00 Magnesium LAB 11/06/24 Verified 04:00 Nitroglycerin PHA 11/05/24 Transmitted Sublingual (Ntrostat 17:45 Ondansetron Hcl PHA 11/05/24 Transmitted (Zofran) 17:45 Electrocardigram EKG 11/06/24 Transmitted 04:00 Troponin-I Hs LAB 11/05/24 Transmitted 17:41 Cardiac SHI 11/05/24 Transmitted Rehabilitation - Outpa Nitroglycerin PHA 11/05/24 Transmitted Sublingual (Ntrostat 17:45 Morphine Sulfate PHA 11/05/24 Transmitted Injection 17:45 Stat Ekg For Chest [facility] 11/05/24 Transmitted Pain 17:41 Notify Md Of Changes [facility] 11/05/24 Transmitted From Base 17:41 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
[2024-11-05 17:55] LABS: Rapid Influenza A Negative (Negative); Rapid Influenza B Negative (Negative)
[2024-11-05 17:56] LABS: COVID19 ANTIGEN SOFIA FIA NEGATIVE (NEGATIVE)
[2024-11-05] MEDS: MORPHINE SULFATE INJ 2 MG/ml SYRG IV PRN (18:17)
[2024-11-05 19:37] LABS: Urine Bacteria None Seen /hpf (None Seen)
[2024-11-05 19:55] LABS: Opiate Scree,Urine Neg (NEGATIVE)
[2024-11-05 20:03] LABS: Amphetamine Screen, Urine Neg (NEGATIVE); Barbiturate Scree,Urine Neg (NEGATIVE); Benzodiazephine Screen, Urine Neg (NEGATIVE); Cannabinoid Screen, Urine Neg (NEGATIVE); Cocaine Screen, Urine Neg (NEGATIVE); Phencyclidine Screen, Urine Neg (NEGATIVE)
[2024-11-05 20:14] LABS: Urine Blood 3+ /uL (Negative); Urine Clarity Clear (Clear); Urine Color Colorless (Yellow); Urine Mucus FEW (None Seen); Urine Protein, UAD TRACE (Negative); Urine Specific Gravity 1.019 (1.001-1.035); Urine Squamous Epithelial Cell FEW /hpf (<5); Urine Urobilinogen Normal (Negative); Urine WBC 1 /HPF (0-5); Urine pH 6.5 (5.0-9.0)
[2024-11-05 20:22] VITALS: PULSE 90; RESP 13; O2SAT 100
[2024-11-05] MEDS: ATORVASTATIN 20 MG TAB PO SCH (22:09)
[2024-11-06] VITALS (9 sets, daily range): BP systolic 106–117; BP diastolic 52–76; PULSE 65–86; RESP 17–20; TEMP 97.8–98.6; O2SAT 95–98
[2024-11-06] MEDS: ACETAMINOPHEN 325 MG TAB PO PRN (03:31)
[2024-11-06 06:44] LABS: Basophils # (auto) 0 10 ^3/uL (0-0.2); Eosinophils # (auto) 0.1 10 ^3/uL (0-0.8); Hemoglobin 7.1 g/dL (12.2-16.2); Lymphocytes # (auto) 1.2 10 ^3/uL (0.4-5.4); Monocytes # (auto) 0.4 10 ^3/uL (0-1.3); White Blood Cell 5.1 10^3/uL (4.4-10.8)
[2024-11-06 06:48] LABS: Basophils % (auto) 0.6 % (0.0-2.0); Eosinophils % (auto) 1.2 % (0.0-7.0); Hematocrit 23.9 % (36.0-46.0); Lymphocytes % (auto) 23.1 % (10.0-50.0); Mean Corpuscular Hemoglobin 18.5 pg (28.0-32.0); Mean Corpuscular Hgb Conc. 29.9 g/dL (32.0-36.0); Mean Corpuscular Volume 62.1 fL (80.0-100.0); Neutrophils # (auto) 3.5 10 ^3/uL (1.6-8.6); Neutrophils % (auto) 67.1 % (37.0-80.0); Platelet Count (auto) 321 10^3/uL (140-450); Red Blood Cells 3.85 10^6/uL (4.0-5.20)
[2024-11-06 06:51] LABS: Anion Gap 10 (5-15); Calcium 9.2 mg/dL (8.7-10.4); Carbon Dioxide 24 mmol/L (20-31); Chloride 106 mmol/L (98-107); Potassium 3.6 mmol/L (3.5-5.1); Sodium 140 mmol/L (136-145)
[2024-11-06 06:56] LABS: Glucose 104 mg/dL (74-106)
[2024-11-06 06:57] LABS: Blood Urea Nitrogen 12 mg/dL (9-23)
[2024-11-06 08:04] LABS: INR 1.03 (0.9-1.15); Prothrombin Time 10.9 sec (9.3-11.8)
--- NOTE | 2024-11-06 08:44 | DVHPNRES ---
Progress Note Date Seen: Nov 06, 2024 Resident Creating Document: DIANNE CHADWICK RESIDENT Has the PT tested + for MRSA If YES, has PT been informed?: Yes Medical Necessity Reason Pt with a Central, PICC or Fol: No Subjective Review of Systems 44-year-old female patient with past medical history of tubal ligation who presented to the emergency department with a chief complaint of pain that radiates to the left arm, patient reports similar pain in the past that lasted 2-3 minutes but this 1 started 2 days ago and lasted for 2 days, was associated with blurry vision and left-sided paresthesias in the left upper and left lower extremities associated with shortness of breaths. Patient reports that she does not have primary care doctor and she does not use any medication at home but has family history of diabetes, stroke and cardiac issues. Patient's BMI is 32.8 . ABCD2 score is 5 for which she was order an MRI she was started on aspirin to rule out transient ischemic attack/stroke. hemoglobin levels in the lower side from 8-7.3 the last 1, MCV is 62. Patient ferritin levels were low for which the patient was started on iron IV, LDL on 113 for which the patient will need to started on atorvastatin. Urinalysis showed 3+ presence of blood and nitrates 2+, urine red blood cell was 48. Patient reports the symptoms started after she was eating dinner. She denies any recent illness sick contacts or recent trauma, injury abdominal pain nausea vomiting or recent . No smoking alcohol or drug history, lives with the family No allergies Family history: Stroke in her father Doppler ultrasound MRI of the brain Head CT unremarkable Objective vital signs Vital Sign Date Time Temp Pulse Resp B/P (MAP) Pulse Ox O2 Delivery O2 Flow Rate FiO2 11/06/24 08:10 71 17 96 Room Air* 0 21 11/06/24 05:15 105/61 11/06/24 05:00 97.9 97.9 Total Intake and Output 11/05/24 11/05/24 11/06/24 15:00 23:00 07:00 Intake Total 250 ml Balance 250 ml medications Current Medications Medications Dose Ordered Sig/Bon Route Start Time Stop Time Status Last Admin Dose Admin Aspirin 81 mg DAILY PO 11/06/24 10:00 Atorvastatin Calcium 40 mg HS PO 11/05/24 22:00 11/05/24 22:09 40 MG Acetaminophen 650 mg Q6HP PRN PO 11/05/24 17:45 11/06/24 03:31 650 MG Ondansetron HCl 4 mg Q4HP PRN IV 11/05/24 17:45 Nitroglycerin 0.4 mg Q5MINP PRN SL 11/05/24 17:45 Morphine Sulfate 2 mg Q30M PRN IV 11/05/24 17:45 11/06/24 04:45 2 MG Examination Examination General Appearance: Alert, Oriented X3, Cooperative, No acute distress Respiratory: Clear to auscultation, Normal air movement Cardiovascular: Regular rate, Normal S1, Normal S2 Abdominal: Normal bowel sounds Extremities: No cyanosis, No edema, Normal pulses, No tenderness/swelling Skin: No rashes, No breakdown Neuro: Normal gait, Normal speech, Strength at 5/5 X4 ext, Normal tone, Sensation intact, Cranial nerves 3-12 NL, Reflexes 2+ Psych/Mental Status: Mental status NL, Mood NL laboratory and microbiology Laboratory Tests 11/06/24 06:14 Test 11/06/24 06:14 Range/Units Serum Glucose 104 74-106 mg/dL Labs and/or images reviewed: Labs reviewed by me, Image(s) reviewed by me Problem List/Assessment/Plan Problem List/Assessment/Plan Acute noncardiac chest pain likely musculoskeletal EKG unremarkable Troponin levels unremarkable Transient left-sided hemiparesis likely associated with transient ischemic attack 50-69% stenosis of the left carotid arterial system MRI of the brain without contrast Aspirin Carotid Doppler ultrasound Severe microcytic hypochromic anemia -IV iron supplementation -monitor H&H Dyslipidemia Atorvastatin Hypertension Monitor Type 1 obesity Lifestyle modification counseling and dietary habits counseling Case discussed with dr costello Goals of care discussed with the patient for 34 minutes Code status: Full code Plan discussed with: Patient, Spouse My Orders My Orders Orders - DIANNE CHADWICK Procedure Category Date Status Time Stool Occult Blood LAB 11/06/24 Uncollected 07:29 Hemoglobin & LAB 11/06/24 Logged Hematocrit 07:29 Electrocardigram EKG 11/06/24 Logged 07:29 Electrocardigram EKG 11/06/24 Logged 08:29 Electrocardigram EKG 11/06/24 Logged 10:29 Kidney US 11/06/24 Taken 07:29 Iron Panel LAB 11/06/24 Logged 08:41 DIANNE CHADWICK RESIDENT Nov 06, 2024 08:44
--- NOTE | 2024-11-06 08:51 | DVH ---
INDICATION: hematuria TECHNIQUE: Multiple real-time sonographic images of the kidneys and bladder were obtained. COMPARISON: None FINDINGS: The right kidney measures 12 cm in length, which is normal in size. There is normal echogen icity of the right kidney. No hydronephrosis. The left kidney measures 11 cm in length, which is normal in size. There is normal echogenicity of th e left kidney. No hydronephrosis. No large intraluminal masses are seen in the bladder. Prior to voiding the bladder volume measures vo lume 29 4 cc. IMPRESSION: 1. Normal sonographic appearance of the kidneys. No hydronephrosis.
[2024-11-06 09:02] LABS: % Iron Saturation 4.4 % (15-50)
[2024-11-06] MEDS: ASPirin 81 mg TAB PO SCH (10:02)
[2024-11-06 10:32] LABS: Hepatitis B Surface Antigen Negative (Negative); Hepatitis C Antibody Negative (Negative)
--- NOTE | 2024-11-06 10:35 | ECG ---
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
--- NOTE | 2024-11-06 10:36 | DVHSR ---
APPROVED REPORT EXAM: Two-dimensional and M-mode echocardiogram with Doppler and color Doppler. Blood Pressure: 105/61 mmHg INDICATION Chest Pain RISK FACTORS Height: 5'3", Weight: 184 DIMENSIONS LVDd4.4 (3.8-5.7cm)LA (2D)5.3 (1.9-4.0cm)Aortic Root3.4 (2.0-3.7cm) LVDs3.0 (2.5-4.0cm)LA (MM) (1.9-4.0cm)Aortic Cusp Exc2.0 (1.5-2.0cm) EF (%) 60.0 (55-70%)Rt. Atrium4.4 (1.9-4.0cm)Asc. Aorta3.1 cm IVSd1.1 (0.7-1.1cm)RV (D) (1.8-2.4cm) PWd1.2 (0.7-1.1cm) Mitral Valve MitralMitral Stenosis E wave0.75m/sMV Mean GR.mmHg A wave0.98m/sMV Peak GR.mmHg E/A ratio0.82D MVAcm2 DECEL [id number] 1/2 [place] Aortic Valve Aortic ValveAortic Stenosis V11.21m/[place] Mean GR.5mmHg V21.52m/[place] Peak GR.9mmHg LVOT Diameter2.4 (1.8-2.4cm)Doppler AVA3.60cm2 Pulmonic Valve V20.89m/s Tricuspid Valve TR Velocity2.34m/s [id number] Conclusion lvef 60% by visual estimate normal rv function borderline atrial enlargement no severe valve abnormalities noted
[2024-11-06 11:07] LABS: Hemoglobin 7.3 g/dL (12.2-16.2)
[2024-11-06 11:09] LABS: Hematocrit 25.1 % (36.0-46.0)
[2024-11-06] MEDS ORDERED: CLOPIDOGREL BISULFATE 75 MG TAB PO ONE (14:45)
[2024-11-06] MEDS: IRON SUCROSE COMPLEX 110 ML IV SCH (15:02)
--- NOTE | 2024-11-06 15:26 | DVH ---
CAROTID DOPPLER ULTRASOUND HISTORY: TIA COMPARISON: None TECHNIQUE: Real time banks scale, color Doppler, and spectral duplex images are obtained through the c arotid and vertebral arteries. Findings: Peak systolic velocity right internal carotid artery is 106 cm/s and right common carotid a rtery is 117 cm/s. Ratio is 0.9. Antegrade flow noted in right vertebral artery. No significant ather osclerotic plaque noted within the right carotid arterial system. Peak systolic velocity left internal carotid artery is 170 cm/s and left common carotid artery is 146 cm/s. Ratio is 1.2. Antegrade flow noted in left vertebral artery. No significant atherosclerotic pl aque noted within the left carotid arterial system. Impression: 1. Approximately 50-69% stenosis of the left carotid arterial system. 2. No evidence of hemodynamically significant stenosis within the right carotid arterial system. 3. Antegrade flow within bilateral vertebral arteries.
[2024-11-07] VITALS (7 sets, daily range): BP systolic 98–113; BP diastolic 54–65; PULSE 60–81; RESP 17–20; TEMP 36.6; O2SAT 94–99
[2024-11-07] MEDS: ONDANSETRON HCL 4 MG/2 ML VIAL IV PRN (06:55)
[2024-11-07 07:04] LABS: Basophils # (auto) 0 10 ^3/uL (0-0.2); Eosinophils # (auto) 0.1 10 ^3/uL (0-0.8); Hemoglobin 7.4 g/dL (12.2-16.2); Lymphocytes # (auto) 0.9 10 ^3/uL (0.4-5.4); Monocytes # (auto) 0.3 10 ^3/uL (0-1.3); Neutrophils # (auto) 2.8 10 ^3/uL (1.6-8.6); White Blood Cell 4.1 10^3/uL (4.4-10.8)
[2024-11-07 07:07] LABS: Alanine Aminotransferase 10 U/L (7-40); Albumin 4.4 g/dL (3.2-4.8); Alkaline Phosphatase 48 U/L (46-116); Anion Gap 10 (5-15); Aspartate Aminotransferase 17 U/L (13-40); BUN/Creatinine Ratio 23.7 (10.0-20.0); Basophils % (auto) 0.6 % (0.0-2.0); Bilirubin, Total 0.4 mg/dL (0.2-1.0); Blood Urea Nitrogen 14 mg/dL (9-23); Calcium 9.4 mg/dL (8.7-10.4); Carbon Dioxide 24 mmol/L (20-31); Chloride 107 mmol/L (98-107); Eosinophils % (auto) 2.5 % (0.0-7.0); Glucose 95 mg/dL (74-106); Mean Corpuscular Hemoglobin 18.5 pg (28.0-32.0); Mean Corpuscular Hgb Conc. 29.7 g/dL (32.0-36.0); Mean Corpuscular Volume 62.2 fL (80.0-100.0); Monocytes % (auto) 7.7 % (0.0-12.0); Neutrophils % (auto) 67.2 % (37.0-80.0); Nucleated Red Blood Cells % 0.3 %; Platelet Count (auto) 349 10^3/uL (140-450); Potassium 3.8 mmol/L (3.5-5.1); Red Blood Cells 4.01 10^6/uL (4.0-5.20); Red Cell Distribution Width 20.3 % (11.8-14.3); Sodium 141 mmol/L (136-145)
[2024-11-07] MEDS: LORazepam 2MG/ML-1ML VIAL IV ONE (08:38)
--- NOTE | 2024-11-07 09:23 | DVH ---
MRI BRAIN HEAD WO CONTRAST INDICATION: TIA EXAM DATE: 11/06/2024 04:24 PM COMPARISON: None PROCEDURE: Using a 1.5 Sugar scanner, multisequence multiplanar imaging of the brain was obtained. FINDINGS: The brainshows normal morphology and signal characteristics. No abnormal T2 hyperintensity, diffusion restriction, or susceptibility hypointensity is present. The ventricles are normal in size . The midline structures are intact. The major intracranial flow voids are present. The aerated space s are normal. The orbital contents and extracranial soft tissues appear normal. IMPRESSION: No acute abnormal MRI findings of the brain.
[2024-11-07] MEDS ORDERED: CLOPIDOGREL BISULFATE 75 MG TAB PO SCH (10:00)
[2024-11-07] MEDS ORDERED: FERR-7 PO (13:36)
[2024-11-07] MEDS ORDERED: ASPI-325 PO (13:36)
[2024-11-07] MEDS ORDERED: ATOR20TA50 PO (13:36)
[2024-11-07] MEDS ORDERED: [UNRECOGNIZED DRUG - CODE] XX (13:44)
--- NOTE | 2024-11-07 18:02 | DVHDSRES ---
Discharge Summary Date of Admission Resident Creating Document: DIANNE CHADWICK RESIDENT Nov 05, 2024 at 17:41 Date of Discharge: Nov 07, 2024 Admitting Diagnosis chest pain Labs/Diagnostic Data: Laboratory Results Test 11/07/24 06:08 11/06/24 06:14 11/05/24 19:35 11/05/24 17:25 White Blood Count 4.1 10^3/uL (4.4-10.8) Red Blood Count 4.01 10^6/uL (4.0-5.20) Hemoglobin 7.4 g/dL (12.2-16.2) Hematocrit 25.0 % (36.0-46.0) Mean Corpuscular Volume 62.2 fL (80.0-100.0) Mean Corpuscular Hemoglobin 18.5 pg (28.0-32.0) Mean Corpuscular Hemoglobin Concent 29.7 g/dL (32.0-36.0) Red Cell Distribution Width 20.3 % (11.8-14.3) Platelet Count 349 10^3/uL (140-450) Mean Platelet Volume 8.4 fL (6.9-10.8) Neutrophils (%) (Auto) 67.2 % (37.0-80.0) Lymphocytes (%) (Auto) 22.0 % (10.0-50.0) Monocytes (%) (Auto) 7.7 % (0.0-12.0) Eosinophils (%) (Auto) 2.5 % (0.0-7.0) Basophils (%) (Auto) 0.6 % (0.0-2.0) Neutrophils # (Auto) 2.8 10 ^3/uL (1.6-8.6) Lymphocytes # (Auto) 0.9 10 ^3/uL (0.4-5.4) Monocytes # (Auto) 0.3 10 ^3/uL (0-1.3) Eosinophils # (Auto) 0.1 10 ^3/uL (0-0.8) Basophils # (Auto) 0 10 ^3/uL (0-0.2) Nucleated Red Blood Cells 0.3 % Sodium Level 141 mmol/L (136-145) Potassium Level 3.8 mmol/L (3.5-5.1) Chloride Level 107 mmol/L (98-107) Carbon Dioxide Level 24 mmol/L (20-31) Anion Gap 10 (5-15) Blood Urea Nitrogen 14 mg/dL (9-23) Creatinine 0.59 mg/dL (0.550-1.02) Glomerular Filtration Rate Calc 114 mL/min (>90) BUN/Creatinine Ratio 23.7 (10.0-20.0) Serum Glucose 95 mg/dL (74-106) Calcium Level 9.4 mg/dL (8.7-10.4) Total Bilirubin 0.4 mg/dL (0.2-1.0) Aspartate Amino Transferase (AST) 17 U/L (13-40) Alanine Aminotransferase (ALT) 10 U/L (7-40) Alkaline Phosphatase 48 U/L (46-116) Total Protein 7.0 g/dL (5.7-8.2) Albumin 4.4 g/dL (3.2-4.8) Prothrombin Time 10.9 sec (9.3-11.8) Prothrombin Time INR 1.03 (0.9-1.15) Magnesium Level 2.0 mg/dL (1.6-2.6) Iron Level 19 ug/dL (50-170) Total Iron Binding Capacity 435 ug/dL (250-425) Percent Iron Saturation 4.4 % (15-50) Ferritin 2.4 ng/mL (10-291) Beta HCG, Quantitative 0.5 mIU/mL (1.5-4.2) Hepatitis B Surface Antigen Negative (Negative) Hepatitis C Antibody Negative (Negative) Urine Color Colorless (Yellow) Urine Clarity Clear (Clear) Urine pH 6.5 (5.0-9.0) Urine Specific [place]ah 1.019 (1.001-1.035) Urine Protein Trace (Negative) Urine Ketones Negative (Negative) Urine Blood 3+ /uL (Negative) Urine Nitrite 2+ (Negative) Urine Bilirubin Negative (Negative) Urine Urobilinogen Normal mg/dL (Negative) Urine Leukocyte Esterase Negative /uL (Negative) Urine RBC 48 /hpf (0 - 4) Urine Microscopic WBC 1 /HPF (0-5) Urine Squamous Epithelial Cells Few /hpf (<5) Urine Bacteria None seen /hpf (None Seen) Urine Mucus Few (None Seen) Urine Glucose Normal mg/dL (Normal) Urine Opiates Screen Neg (NEGATIVE) Urine Fentanyl Screen Neg (NEGATIVE) Urine Barbiturates Screen Neg (NEGATIVE) Urine Phencyclidine Screen Neg (NEGATIVE) Urine Amphetamines Screen Neg (NEGATIVE) Urine Benzodiazepines Screen Neg (NEGATIVE) Urine Cocaine Screen Neg (NEGATIVE) Urine Cannabinoids Screen Neg (NEGATIVE) SARS-CoV-2 Antigen (Rapid) Negative (NEGATIVE) Test 11/05/24 17:00 11/05/24 14:03 11/05/24 13:00 11/05/24 12:22 Influenza Type A Antigen Negative (Negative) Influenza Type B Antigen Negative (Negative) Troponin I High Sensitivity < 3 ng/L (</=34) Triglycerides Level 117 mg/dL (< 150) Cholesterol Level 190 mg/dL (< 200) LDL Cholesterol 113 mg/dL (< 100) HDL Cholesterol 61 mg/dL (40-59) Thyroid Stimulating Hormone (TSH) 1.51 uIU/mL (0.55-4.78) Hemoglobin A1c 5.2 % A1C (<5.7) B-Type Natriuretic Peptide 31.84 pg/mL (0-100) POC Glucose 88 mg/dl (70-106) Other Laboratory Tests 11/07/24 06:08 Brief Hx & Hospital Course: HPI: 44-year-old female patient with past medical history of tubal ligation who presented to the emergency department with a chief complaint of pain that radiates to the left arm, patient reports similar pain in the past that lasted 2-3 minutes but this 1 started 2 days ago and lasted for 2 days, was associated with blurry vision and left-sided paresthesias in the left upper and left lower extremities associated with shortness of breaths. Hospital course: Patient reports that she does not have primary care doctor and she does not use any medication at home but has family history of diabetes, stroke and cardiac issues. Patient's BMI is 32.8 . ABCD2 score is 5 , she was started on aspirin to rule out transient ischemic attack/stroke. MRI was performed and was negative for TI a/stroke, he hemoglobin is still rule out to transfusion med the patient will be discharged on iron supplement and also atorvastatin for dyslipidemia. She was also encouraged to monitor blood pressure at home and follow up with her primary care doctor . Carotid Doppler ultrasound showed 50% stenosis fully she will need to be monitored in the outpatient. Disposition: Discharge home. Goals of care discussed with the patient for 31 minutes Case discussed with Dr. Hoff Code status: Full code Operations or Procedures [address] [address] Ph: [phone] DIAGNOSTIC IMAGING Diagnostic Imaging Report : [id number] Signed PATIENT: MAYA PEREZ ACCT: [id number] UNIT: [id number] : 1980 LOC: ER ROOM / BED: / AGE / SEX: 44 / F ADM STATUS: REG ER SERVICE 1245 ORDERING PHYSICIAN: JOSE GUADALUPE BARCLAY MD PROCEDURE(s): CXRP - CHEST PORTABLE REASON: cp ORDER NUMBER(s): [id number], ACCESSION NUMBER(s): [id number] INDICATION: cp TECHNIQUE: Frontal view of the chest. COMPARISON: None FINDINGS: . The heart and mediastinal contours are grossly unremarkable. There is no evidence of pleural disease. The lungs are clear. The bony structures of the chest are intact without fracture. IMPRESSION: 1. No evidence of acute disease. ATED BY: KHRIS DEAN MD DICTATED DATE/TIME: 11/05/24 1431 SIGNED BY: KHRIS DEAN MD SIGNED DATE/TIME: 11/05/24 1431 CC: [place] [id number] Ph: [phone] DIAGNOSTIC IMAGING Diagnostic Imaging Report : [id number] Signed PATIENT: MAYA PEREZ ACCT: [id number] UNIT: [id number] : 1980 LOC: ER ROOM / BED: / AGE / SEX: 44 / F ADM STATUS: REG ER SERVICE 1245 ORDERING PHYSICIAN: JOSE GUADALUPE BARCLAY MD PROCEDURE(s): HWOCT - HEAD WITHOUT CONTRAST REASON: L side numb ORDER NUMBER(s): [id number], ACCESSION NUMBER(s): [id number] CT HEAD WITHOUT CONTRAST INDICATION: L side numb EXAM DATE: 11/05/2024 02:09 PM COMPARISON: None RADIATION DOSE: CTDIvol: 53.21 mGy, DLP: 942.26 mGy*cm PROCEDURE: CT scans of the head were obtained from the vertex to the skull base. Sagittal and coronal reconstructions were provided. All CT scans at this medical facility are performed using dose modulation techniques as appropriate to a performed exam including the following: Automated exposure control was utilized; adjustment of the MA and/or KV according to patient size; and use of iterative reconstruction technique. FINDINGS: There is sulcal and ventricular prominence. The brainshows normal morphology and banks-white matter differentiation, without intracranial hemorrhage, extra-axial fluid collection, mass effect or acute large vessel infarct. The ventricles are normal in size. The basal cisterns are patent. The skull and visible facial bones are intact. The paranasal sinuses, mastoid air cells and middle ear cavities are well-aerated. The soft tissues of the scalp are unremarkable. IMPRESSION: No acute intracranial abnormality. ATED BY: SRINIVASAN DEL CASTILLO MD DICTATED DATE/TIME: 11/05/241431 SIGNED BY: SRINIVASAN DEL CASTILLO MD SIGNED DATE/TIME: 11/05/24 143 CC: [place] [id number] Ph: [phone] DIAGNOSTIC IMAGING Diagnostic Imaging Report : [id number] Signed PATIENT: MAYA PEREZ ACCT: [id number] UNIT: [id number] : 1980 LOC: [facility] ROOM / BED: [address] [place] [address] AGE / SEX: 44 / F ADM STATUS: ADM IN SERVICE 0729 ORDERING PHYSICIAN: DIANNE CHADWICK RESIDENT PROCEDURE(s): KIDUS - KIDNEY REASON: hematuria ORDER NUMBER(s): [id number], ACCESSION NUMBER(s): [id number] INDICATION: hematuria TECHNIQUE: Multiple real-time sonographic images of the kidneys and bladder were obtained. COMPARISON: None FINDINGS: The right kidney measures 12 cm in length, which is normal in size. There is normal echogenicity of the right kidney. No hydronephrosis. The left kidney measures 11 cm in length, which is normal in size. There is normal echogenicity of the left kidney. No hydronephrosis. No large intraluminal masses are seen in the bladder. Prior to voiding the bladder volume measures volume 29 4 cc. IMPRESSION: 1. Normal sonographic appearance of the kidneys. No hydronephrosis. ATED BY: KHRIS DEAN MD DICTATED DATE/TIME: 11/06/24 0848 SIGNED BY: KHRIS DEAN MD SIGNED DATE/TIME: 11/06/24 0848 CC: [place] [id number] Ph: [phone] DIAGNOSTIC IMAGING Diagnostic Imaging Report : [id number] Signed PATIENT: MAYA PEREZ ACCT: [id number] UNIT: [id number] : 1980 LOC: [facility]GE / SEX: 44 / F ADM STATUS: ADM IN SERVICE 35 ORDERING PHYSICIAN: DIANNE CHADWICK RESIDENT PROCEDURE(s): CARCL - CAROTID DUPLX W COLOR DOP REASON: TIA ORDER NUMBER(s): [id number], ACCESSION NUMBER(s): [id number] CAROTID DOPPLER ULTRASOUND HISTORY: TIA COMPARISON: None TECHNIQUE: Real time banks scale, color Doppler, and spectral duplex images are obtained through the carotid and vertebral arteries. Findings: Peak systolic velocity right internal carotid artery is 106 cm/s and right common carotid artery is 117 cm/s. Ratio is 0.9. Antegrade flow noted in right vertebral artery. No significant atherosclerotic plaque noted within the right carotid arterial system. Peak systolic velocity left internal carotid artery is 170 cm/s and left common carotid artery is 146 cm/s. Ratio is 1.2. Antegrade flow noted in left vertebral artery. No significant atherosclerotic plaque noted within the left carotid arterial system. Impression: 1. Approximately 50-69% stenosis of the left carotid arterial system. 2. No evidence of hemodynamically significant stenosis within the right carotid arterial system. 3. Antegrade flow within bilateral vertebral arteries. ATED BY: BLANCO NORTH DO DICTATED DATE/TIME: 11/06/24 1524 SIGNED BY: BLANCO NORTH DO SIGNED DATE/TIME: 11/06/24 1524 CC: [place] [id number] Ph: [phone] DIAGNOSTIC IMAGING Diagnostic Imaging Report : [id number] Signed PATIENT: MAYA PEREZ ACCT: [id number] UNIT: [id number] : 1980 LOC: [facility] AGE / SEX: 44 / F ADM STATUS: ADM IN SERVICE 142 ORDERING PHYSICIAN: DIANNE CHADWICK RESIDENT PROCEDURE(s): MBHL - BRAIN HEAD WO CONTRAST REASON: TIA ORDER NUMBER(s): [id number], ACCESSION NUMBER(s): [id number] MRI BRAIN HEAD WO CONTRAST INDICATION: TIA EXAM DATE: 11/06/2024 04:24 PM COMPARISON: None PROCEDURE: Using a 1.5 Sugar scanner, multisequence multiplanar imaging of the brain was obtained. FINDINGS: The brainshows normal morphology and signal characteristics. No abnormal T2 hyperintensity, diffusion restriction, or susceptibility hypointensity is present. The ventricles are normal in size. The midline structures are intact. The major intracranial flow voids are present. The aerated spaces are normal. The orbital contents and extracranial soft tissues appear normal. IMPRESSION: No acute abnormal MRI findings of the brain. ATED BY: SRINIVASAN DEL CASTILLO MD DICTATED DATE/TIME: 11/07/24920 SIGNED BY: SRINIVASAN DEL CASTILLO MD SIGNED DATE/TIME: 11/07/24920 CC: Condition at Discharge: Fair Final Diagnosis/Problems List Acute noncardiac chest pain likely musculoskeletal Transient left-sided hemiparesis likely associated with transient ischemic attack 50-69% stenosis of the left carotid arterial system Severe microcytic hypochromic anemia Dyslipidemia Hypertension Type 1 obesity Discharge Disposition: Home SNF Discharge Will this Physician continue t: No Discharge Instruct/Medications Diet: Cardiac 2g Na,low cholest Activity: No Restrictions, As Tolerated Follow Up/Referral: follow up with pcp within 1 to 2 weeks Medications: script to pharmacy Discharge Statement: "Patient was advised to return to the ER or call 911 if any headaches, dizziness, shortness of breath, chest pain, abdominal pain, bleeding, fevers, or worsening of medical condition. Patient was counseled about treatment plan, medications, possible side effects, patientverbalized understanding. All questions were answered to the best of my ability. This discharge took greater then 30 minutes in planning, reviewing documentation, counseling the patient, and discussing with other team members." ASSESSMENT ASSESSMENT Assessment non cardiac chest pain ruled out TIA obesity type 1 dyslipidemia hypertension DIANNE CHADWICK RESIDENT Nov 07, 2024 18:02
[2024-11-08] MEDS ORDERED: BACDST PO (15:00)
== END 2024-11-07 17:50 | disposition home or self-care (01) | DRG 203 ==
LOC: ER 11:59 → OVERFLOW 17:41 → TELE-EAST 11-06 04:00
PROVIDERS: ADMIT Student in an Organized Health Care Education/Training Program; ATTEND Student in an Organized Health Care Education/Training Program
DX: R07.89 Other chest pain (principal); G81.94 Hemiplegia, unspecified affecting left nondominant side; D64.9 Anemia, unspecified; Z20.822 Contact with and (suspected) exposure to COVID-19; Z68.32 Body mass index [BMI] 32.0-32.9, adult; E66.9 Obesity, unspecified; E78.5 Hyperlipidemia, unspecified; I10 Essential (primary) hypertension; I16.0 Hypertensive urgency; Z83.3 Family history of diabetes mellitus; Z98.51 Tubal ligation status; Z98.891 History of uterine scar from previous surgery; Z79.899 Other long term (current) drug therapy; I65.22 Occlusion and stenosis of left carotid artery
CPT/HCPCS: 36415; 70450; 70551; 71045; 76775; 80048; 80053; 80061; 80307; 81001; 82728; 82962; 83036; 83540; 83550; 83735; 83880; 84443; 84484; 84702; 85014; 85018; 85025; 85610; 86803; 86850; 86870; 86900; 86901; 87340; 87426; 87804; 93005; 93306; 93886; 96374; 96375; G0378; J1756; J2405

== ENCOUNTER 2024-11-08 11:13 | Emergency (ER) | payer MEDICAID ==
[~2024-11-08] VITALS: Ht 157.5 cm; Wt 82.1 kg
[~2024-11-08 11:13] MED LIST changes: +ASPI-325 PO; +ATOR20TA50 PO; +FERR-7 PO; +[UNRECOGNIZED DRUG - CODE] XX
--- NOTE | 2024-11-08 12:05 | ED.PDOC ---
History of Present Illness HPI Comments 44-year-old female presents with a chief complaint of left upper arm swelling, redness, and warmth. Patient states that she was seen here last night and discharged home. Patient mentions that she had an IV in her left AC. Patient reports that when she got home, she unwrapped her arm and found that it was swo llen, painful, and red in color. Patient is now reporting 10/10 pain to the arm and it is visibly swollen. Patient has tinge of red colored skin to the left AC area. Patient reports that she came in last night for dizziness, nausea, and vomiting, and is still experiencing those symptoms. Chief Complaint: Upper Extremity Time Seen by MD: 11:55 Primary Care Provider: NONE Reviewed Notes: Medications, Allergies Allergies: Coded Allergies: NO KNOWN ALLERGIES (Unverified , 09/15/21) Home Meds Active Scripts Blood Pressure Monitoring (AUTOMATIC BLOOD PRESSURE) Monitor LEONORA Sharma XX, #1 Plan ahead. Dont smoke, drink caffeinated beverages or exercise within 30 minutes before taking your blood pressure. Don't take the measurement over clothes. You can use either arm. Be still. Allow at least five minutes of quiet rest before measurements. Sit correctly. Sit with your back straight and supported . Your feet should be flat on the floor.Do not cross your legs. Support your arm on a flat surface. The middle of the cuff should be placed on the upper arm at heart level. Measure at the same time every day. Take multiple readings and record the results. Prov:DIANNE CHADWICK RESIDENT 11/07/24 Ferrous Sulfate (Iron) 325 Mg Tab, 325 MG PO DAILY PRN for 30 Days, #30 TAB Prov:DIANNE CHADWICK 11/07/24 Atorvastatin Calcium (ATORVASTATIN CALCIUM) 20 Mg Tab, 40 MG PO HS for 60 Days, #120 TAB Prov:DIANNE CHADWICK RESIDENT 11/07/24 Aspirin (Aspirin Low Dose) 81 Mg Tab, 81 MG PO DAILY for 60 Days, #60 TAB Prov:DIANNE CHADWICK RESIDENT 11/07/24 Ibuprofen (Ibuprofen) 800 Mg Tab, 800 MG PO TID PRN for 15 Days, #40 TAB Prov:LEON GUIDRY DO 09/19/21 Hydrocodone-Acetaminophen (Hydrocodone Bitartrate/AC 5-325 mg) 1 Tab Tab, 1 TAB PO Q6HPRN PRN for 5 Days, #20 TAB Prov:LEON GUIDRY DO 09/19/21 Docusate Sodium (Colace) 100 Mg Cap, 1 CAP PO BID, #60 CAP 2 Refills Prov:LEON GUIDRY DO 09/19/21 Reported Medications Vit W/ Ferrous Fumara ( One Daily) Daily Tab, 1 TAB PO DAILY, #90 TAB 3 Refills 07/15/21 Information Source: Patient Mode of Arrival: Ambulatory Severity: Moderate Timing: Hours Duration: Since onset Prehospital treatment: None Past Medical History PAST MEDICAL HISTORY: Denies Surgical History: Denies all surgeries [employer] History: No Pertinent [employer] History Family History Family History: Unknown Social History Smoker: Non-Smoker Alcohol: Denies ETOH Use Drugs: Denies Drug Use Lives In: Home Constitutional: denies: chills, diaphoresis, fatigue, fever, malaise, sweats, weakness, others EENTM: denies: blurred vision, double vision, ear bleeding, ear discharge, ear drainage, ear pain, ear ringing, eye pain, eye redness, hearing loss, mouth pain, mouth swelling, nasal discharge, nose bleeding, nose congestion, nose pain, photophobia, tearing, throat pain, throat swelling, voice changes, others Respiratory: denies: cough, hemoptysis, orthopnea, SOB at rest, shortness of breath, SOB with excertion, stridor, wheezing, others Cardiovascular: reports: edema; denies: chest pain, dizzy spells, diaphoresis, Dyspnea on exertion, irregular heart beat, left arm pain, lightheadedness, palpitations, PND, syncope, others Gastrointestinal: denies: abdomen distended, abdominal pain, blood streaked bowels, constipated, diarrhea, dysphagia, difficulty swallowing, hematemesis, melena, nausea, poor appetite, poor fluid intake, rectal bleeding, rectal pain, vomiting, others Genitourinary: denies: abnormal vagina bleeding, burning, dyspareunia, dysuria, flank pain, frequency, hematuria, incontinence, pain, , vagina discharge, urgency, others Neurological: denies: dizziness, fainting, headache, left sided numbness, left sided weakness, numbness, paresthesia, pre-existing deficit, right sided numbness, right sided weakness, seizure, speech problems, tingling, tremors, weakness, others Musculoskeletal: denies: back pain, gout, joint pain, joint swelling, muscle pain, muscle stiffness, neck pain, others Integumetry: denies: bruises, change in color, change in hair/nails, dryness, laceration, lesions, lumps, rash, wounds, others Allergic/Immunocompromised: denies: Difficulty Healing, Frequent Infections, Hives, Itching, others Hematologic/Lymphatic: denies: anemia, blood clots, easy bleeding, easy bruising, swollen glands, others Endocrine: denies: excessive hunger, excessive sweating, excessive thirst, excessive urination, flushing, intolerance to cold, intolerance to heat, unexplained weight gain, unexplained weight loss, others Psychiatric: denies: anxiety, bipolar disorder, depression, hopeless, panic disorder, schizophrenia, sleepless, suicidal, others All Other Systems: Reviewed and Negative Physical Exam General Appearance: No Apparent Distress, Normal HEENT: Normal ENT Inspection, Pharynx Normal, TMs Normal Neck: Full Range of Motion, Non-Tender, Normal, Normal Inspection Respiratory: Chest Non-Tender, Lungs Clear, No Accessory Muscle Use, No Respiratory Distress, Normal Breath Sounds Cardiovascular: No Edema, No JVD, No Murmur, No Gallop, Normal Peripheral Pulses, Regular Rate/Rhythm Breast Exam: Deferred Gastrointestinal: No Organomegaly, Non Tender, No Pulsatile Mass, Normal Bowel Sounds, Soft Genitalia: Deferred Pelvic: Deferred Rectal: Deferred Extremities: Swelling, Tender, Other (REDNESS, WARMTH, SWELLING TO IV INSERTION SITE ON LEFT ANTICUBITAL ) Musculoskeletal : Apperance: Normal Neurologic: Alert, contact lens blocker II-XII nml as Tested, No Motor Deficits, Normal Affect, Normal Mood, No Sensory Deficits Cerebellar Function: Normal Reflexes: Normal Skin: Dry, Normal Color, Warm Lymphatic: No Adenopathy Was a procedure done? Was a procedure done?: No Differential Dx Considerations may include: ACS, viral syndrome, phlebitis X-Ray, Labs, Meds, VS Vital Signs Date Time Temp Pulse Resp B/P (MAP) Pulse Ox O2 Delivery O2 Flow Rate FiO2 11/08/24 13:06 71 96 Room Air* 0 21 11/08/24 13:06 97.7 77 18 119/71 (87) 97 97.7 11/08/24 11:35 98.9 75 16 104/69 (81) 98 Lab Test 11/08/24 13:26 11/08/24 12:38 Range/Units Troponin I High Sensitivity Pending < 3 L </=34 ng/L White Blood Count 8.8 # 4.4-10.8 10^3/uL Red Blood Count 4.77 4.0-5.20 10^6/uL Hemoglobin 8.8 #L 12.2-16.2 g/dL Hematocrit 30.6 #L 36.0-46.0 % Mean Corpuscular Volume 64.0 L 80.0-100.0 fL Mean Corpuscular Hemoglobin 18.4 L 28.0-32.0 pg Mean Corpuscular Hemoglobin Concent 28.7 L 32.0-36.0 g/dL Red Cell Distribution Width 20.2 H 11.8-14.3 % Platelet Count 414 140-450 10^3/uL Mean Platelet Volume 8.2 6.9-10.8 fL Neutrophils (%) (Auto) 81.9 H 37.0-80.0 % Lymphocytes (%) (Auto) 11.4 10.0-50.0 % Monocytes (%) (Auto) 5.1 0.0-12.0 % Eosinophils (%) (Auto) 1.0 0.0-7.0 % Basophils (%) (Auto) 0.6 0.0-2.0 % Neutrophils # (Auto) 7.2 1.6-8.6 10 ^3/uL Lymphocytes # (Auto) 1.0 0.4-5.4 10 ^3/uL Monocytes # (Auto) 0.4 0-1.3 10 ^3/uL Eosinophils # (Auto) 0.1 0-0.8 10 ^3/uL Basophils # (Auto) 0.1 0-0.2 10 ^3/uL Nucleated Red Blood Cells 0.3 % Platelet Estimate Pending Sodium Level 140 136-145 mmol/L Potassium Level 3.9 3.5-5.1 mmol/L Chloride Level 106 98-107 mmol/L Carbon Dioxide Level 27 20-31 mmol/L Anion Gap 7 5-15 Blood Urea Nitrogen 17 9-23 mg/dL Creatinine 0.60 0.550-1.02 mg/dL Glomerular Filtration Rate Calc 113 >90 mL/min BUN/Creatinine Ratio 28.3 H 10.0-20.0 Serum Glucose 94 74-106 mg/dL Calcium Level 9.4 8.7-10.4 mg/dL Time of 1ST Reevaluation: 12:15 Reevaluation 1ST: Unchanged Patient Education/Counseling: Diagnosis, Treatment, Prognosis Family Education/Counseling: Diagnosis, Treatment, Prognosis Departure 1 Departure Time of Disposition: 14:08 (Patient presented with chest pain that was concerning for possible STEMI, ACS, PE, Pneumonia, Muscle Strain, COPD, Dissection. Data: 1. I ordered and reviewed the result of at least 3 labs including a CBC, BMP, and Troponin. 2. I independently interpreted the following tests: EKG which shows _ sinus arrhythmia Risk:This patient has a high risk of morbidity due to further diagnostic testing or treatment and may suffer from an acute cardiac or respiratory disorder. Workup reveals concern for ACS and thrombophlebitis of the left arm and patient should be admitted for further workup and possible expert consultation. ) Impression: Primary Impression: Thrombophlebitis Additional Impression: Acute chest pain Disposition: ADMITTED INPATIENT Admit to: Med Surg Condition: Serious Critical Care Note Critical Care Time?: Yes Critical care comment: Acute chest pain Authorized and Performed by: Larissa Esparza MD Total critical care time: Approximately 34 minutes Due to a high probability of clinically significant, life threatening deterioration, the patient required my highest level of preparedness to intervene emergently and I personally spent this critical care time directly and personally managing the patient. This critical care time included obtaining a history; examining the patient; pulse oximetry; ordering and review of studies; arranging urgent treatment with development of a management plan; evaluation of patient's response to treatment; frequent reassessment; and, discussions with other providers. This critical care time was performed to assess and manage the high probability of imminent, life-threatening deterioration that could result in multi-organ failure. It was exclusive of separately billable procedures and treating other patients and teaching time. Please see my other sections and the rest of the note for further information on patient assessment and treatment. Stability Stability form required: No Heart Score Heart Score: Heart Score Response (Comments) Value History Moderate Suspicious 1 EKG Repolarization Disturb 1 Age <45 0 Risk Factors >3 or Hx ASHD 2 Troponin 1-2 x's Normal limit 1 Total 5 I personally scribed for LARISSA ESPARZA MD ([email or web address]) on 11/08/24 at 12:05. Electronically submitted by Michael Gongora ([email or web address]). LARISSA ESPARZA MD Nov 08, 2024 12:05
[2024-11-08 12:55] LABS: Basophils # (auto) 0.1 10 ^3/uL (0-0.2); Basophils % (auto) 0.6 % (0.0-2.0); Eosinophils # (auto) 0.1 10 ^3/uL (0-0.8); Hematocrit 30.6 % (36.0-46.0); Hemoglobin 8.8 g/dL (12.2-16.2); Lymphocytes % (auto) 11.4 % (10.0-50.0); Mean Corpuscular Hemoglobin 18.4 pg (28.0-32.0); Mean Corpuscular Hgb Conc. 28.7 g/dL (32.0-36.0); Monocytes # (auto) 0.4 10 ^3/uL (0-1.3); Monocytes % (auto) 5.1 % (0.0-12.0); Neutrophils # (auto) 7.2 10 ^3/uL (1.6-8.6); Neutrophils % (auto) 81.9 % (37.0-80.0); Nucleated Red Blood Cells % 0.3 %; Platelet Count (auto) 414 10^3/uL (140-450); Red Blood Cells 4.77 10^6/uL (4.0-5.20); White Blood Cell 8.8 10^3/uL (4.4-10.8)
[2024-11-08 12:57] LABS: Red Cell Distribution Width 20.2 % (11.8-14.3)
[2024-11-08 13:05] LABS: Chloride 106 mmol/L (98-107); Potassium 3.9 mmol/L (3.5-5.1); Sodium 140 mmol/L (136-145)
[2024-11-08 13:06] VITALS: PULSE 71; O2SAT 96
[2024-11-08 13:06] LABS: Anion Gap 7 (5-15); Carbon Dioxide 27 mmol/L (20-31)
[2024-11-08 13:07] LABS: Calcium 9.4 mg/dL (8.7-10.4)
[2024-11-08 13:11] LABS: BUN/Creatinine Ratio 28.3 (10.0-20.0); Blood Urea Nitrogen 17 mg/dL (9-23); Glucose 94 mg/dL (74-106)
[2024-11-08] MEDS: HYDROcodone-ACET 5/325MG TAB PO ONE ×3 (14:08→16:53)
[2024-11-08 14:15] LABS: Platelet Estimate Increased
[2024-11-08 14:16] LABS: Anisocytosis Slight; Hypochromia Marked
[2024-11-08] MEDS: SULFAMETHOX W/TRIMETH(800/160MG) DS TAB PO ONE (14:55)
[2024-11-08] MEDS ORDERED: BACDST PO (15:00)
--- NOTE | 2024-11-08 15:00 | ED.PDOC ---
Departure 1 Departure Time of Disposition: 14:59 (Upon reassessment patient reports she has no more chest pain and shortness of breath or near-syncope. She has not want to be admitted. We will medications for thrombophlebitis) Impression: Primary Impression: Thrombophlebitis Disposition: HOME / SELF CARE / HOMELESS Admit to: Med Surg Condition: Stable Additional Instructions: You have phlebitis. This is irritation of the blood vessels. You were p rescribed antibiotics. Please take as directed. For pain you can take the followinam: Ibuprofen 400mg with food Noon: Acetaminophen 1000mg 4pm: Ibuprofen 400mg with food 8pm: Acetaminophen 1000mg You should follow up with your regular doctor within one week to ensure you are doing better. If your symptoms worsen or you have any other concerns then please return to the ER. e-Prescriptions Sulfamethoxazole W/Trimethopri (Bactrim Ds Tablet) 1 Tab Tb 1 TAB PO BID for 7 Days, #14 TAB Prov: LARISSA ESPARZA MD 11/08/24 Discharged With: Self LARISSA ESPARZA MD Nov 08, 2024 15:00
--- NOTE | 2024-11-08 15:58 | DVH ---
INDICATION: cp TECHNIQUE: Frontal view of the chest. COMPARISON: XY CHEST PORTABLE on DOS: 11/05/24 FINDINGS: The heart and mediastinal contours are grossly unremarkable. There is no evidence of pleural disease . The lungs are clear. The bony structures of the chest are intact without fracture. IMPRESSION: 1. No evidence of acute disease.
[2024-11-08 17:12] VITALS: BP 115/65; PULSE 75; RESP 18; TEMP 98.4; O2SAT 99
== END 2024-11-08 17:13 | disposition home or self-care (01) ==
LOC: ER 11:13
DX: I80.9 Phlebitis and thrombophlebitis of unspecified site (principal); R07.89 Other chest pain; Z79.899 Other long term (current) drug therapy
CPT/HCPCS: 36415; 71045; 80048; 84484; 85025